=== PATIENT | male | born 1960 | race Caucasian/White ===

== ENCOUNTER 2025-01-04 05:22 | Emergency (ER) | payer OTHER, SELFPAY ==
[2025-01-04 05:23] VITALS: BP 151/115; PULSE 82; RESP 18; TEMP 36.9; O2SAT 98; BMI 26.2
[2025-01-04 05:26] VITALS: BP 154/115; PULSE 87; RESP 18; TEMP 36.9; O2SAT 97
--- NOTE | 2025-01-04 05:34 | CT_ITS ---
PROCEDURE: ABDOMEN/PELVIS W IV CONT ONLY REASON FOR EXAM: ACUTE PAIN WITH GUARDING, HISTORY PERFORATED VISCU TECHNIQUE: CT of the abdomen and pelvis with contrast with coronal and sagittal reformatted images IV CONTRAST: 95 cc Isovue 370 COMPARISON: None. FINDINGS: The lung bases are clear. The liver, adrenal glands, kidneys, pancreas and spleen appear within limits. A couple of small faint stones at the fundus of a non distended, noninflamed appearing gallbladder. No intra or extrahepatic biliary ductal dilation. Aortoiliac atherosclerotic calcifications. No abdominal aortic aneurysm. No adenopathy. Status post gastric and small bowel surgery, gastric bypass surgery. Focal mild gaseous distention of the small bowel loop directly leading away from the gastric pouch for a short segment in the left upper quadrant for example axial 22 and coronal 19. May represent a focal ileus, nonspecific. A few scattered fluid levels within nondistended small bowel in the upper abdomen. No free air. Normal caliber appendix without secondary signs. No evidence of bowel wall thickening. The bladder is mostly collapsed and there appears to be diffuse bladder wall prominence which may be due to underdistention or inflammatory/infectious process not excluded. No free fluid. Prostate appears within limits. L5-S1 spondylosis/discogenic change. Possible disc bulge at L3-4. CT/Abdomen/Pelvis W IV Cont ONLY IMPRESSION: Status post gastric and small bowel surgery, gastric bypass surgery. Focal mild gaseous distention of the small bowel loop directly leading away from the gastric pouch for a short segment in the left up per quadrant for example axial 22 and coronal 19. May represent a focal ileus, nonspecific. Cholelithiasis without CT evidence of cholecystitis The bladder is mostly collapsed and there appears to be diffuse bladder wall pr ominence which may be due to underdistention or inflammatory/infectious process not excluded. One or more dose reduction techniques were used (e.g., Automated exposure contr ol, adjustment of the mA and/or kV according to patient size, use of iterative reconstruction technique). Reading Location: [facility]
--- NOTE | 2025-01-04 05:35 | EX.ED.DYSGE1 ---
HPI <Dr. Sam Patel MD - Last Filed: 01/06/25 15:40> History of Present Illness Chief Complaint: Abd Pain Detail of Chief Complaint: Abdominal pain, distention, nausea and weight loss Informant: patient and spouse/S.O. Onset/Context/Timing Onset: Days Context: Gradual Onset Timing: Continuous and Waxes and wanes Quality: Predominantly upper abdomen fullness and discomfort Current Severity: Mild Maximum Severity: Moderate Worsened by: Attempt to eat or drink anything Relieved by: Nothing Associated Symptoms Associated Symptoms: Nausea with unintentional weight loss Narrative Narrative: Patient is 64-year-old male. He and his relocated from [place]. Prior to that they lived in [place]. He has a past surgical history of gastric sleeve, bleeding ulcer 1.5 years ago, perforated viscus who presents with recurrence of abdominal discomfort and fullness with nausea and weight loss because he cannot eat or drink anything. The last 24 hours she had half of a sandwich. The sandwich made his pain and bloating worse. He denies black or maroon-colored stool. He states he cannot vomit because he has a gastric pouch. He is a non-smoker. He denies fever, chills night sweats. He denies cardiac respiratory symptoms. He does have history of hypertension, BPH, depression and insomnia. Prior similar symptoms: Yes Recent Illness/Hospitalization: No PFSH <Dr. Sam Patel MD - Last Filed: 01/06/25 15:40> [facility] Medical History (Updated 01/04/25 @ 07:[address] Blaine Kaye, DO) Abdominal hernia Hernia Stomach ulcer Medical History no medical history no medical history (Documented HPI narrative) Home Medications ?Medication ?Instructions ?Recorded ?Last Taken ?Type amlodipine 10 mg tablet 10 mg PO DAILY 01/04/25 Unknown History carvedilol 25 mg tablet 50 mg PO BID 01/04/25 Unknown History lisdexamfetamine 60 mg capsule 60 mg PO DAILY 01/04/25 Unknown History lisinopril 40 mg tablet 40 mg PO DAILY 01/04/25 Unknown History ondansetron 4 mg disintegrating 4 mg PO Q8H PRN PRN Nausea #10 tabs 01/04/25 Unknown Rx tablet tamsulosin 0.4 mg capsule (Flomax) 0.4 mg PO DAILY 01/04/25 Unknown History trazodone 300 mg tablet 450 mg PO QHS 01/04/25 Unknown History vortioxetine 20 mg tablet 20 mg PO DAILY 01/04/25 Unknown History (Trintellix) Allergy/AdvReac Type Severity Reaction Status Date / Time No Known Allergies Allergy Verified 01/04/25 05:27 Surgical History (Updated 01/04/25 @ 05:37 by Brittanie Flower) Hx of gastric bypass Surgical History no surgical history no surgical history (Documented HPI narrative) Social History (Updated 01/04/25 @ 05:[address] Sam Patel MD) household members: spouse Smoking Status: Never smoker ROS <Dr. Sam Patel MD - Last Filed: 01/06/25 15:40> ROS ED Constitutional Constitutional ED: Denies chills, fever(s) or subjective Eyes Eyes: Denies blurry vision or change in vision ENT ENT ED: Denies ear pain or rhinorrhea Cardiovascular Cardiovascular: Denies chest pain or palpitations Respiratory/Chest Respiratory/Chest: Denies cough, dyspnea or dyspnea on exertion Gastrointestinal Gastrointestinal: Reports abdominal pain and nausea; Denies constipation, diarrhea, melena or vomiting Genitourinary Genitourinary ED: Denies dysuria, hematuria or urinary frequency Musculoskeletal Musculoskeletal: Denies arthralgias, back pain or neck pain Integumentary Denies rash Hematologic/Lymphatic Hematologic/Lymphatic: Reports systems reviewed and no addt'l complaints, except as documented EXAM <Dr. aSm Patel MD - Last Filed: 01/06/25 15:40> Physical Exam Const Vital Signs: 01/04/25 05:23 01/04/25 05:26 01/04/25 06:26 Temperature 98.5 F 98.5 F 98.1 F Temperature Source Oral Oral Oral Pulse Rate 82 87 74 Respiratory Rate 18 18 20 H Blood Pressure 151/115 H 154/115 H 144/76 H Blood Pressure Mean 127 128 98 Pulse Ox 98 97 96 Oxygen Delivery Method Room Air Room Air Non-Rebreather @ 15L/min 01/04/25 06:51 Temperature 98.1 F Temperature Source Oral Pulse Rate 77 Respiratory Rate 21 H Blood Pressure 144/94 H Blood Pressure Mean 110 Pulse Ox 98 Oxygen Delivery Method Room Air Positive well nourished and well developed Constitutional Narrative: Patient appears uncomfortable. Blood pressure is elevated. General Appearance ED: well developed; Negative for pallor HEENT HEENT Narrative: Head is atraumatic normocephalic. Ears normal. Nares patent. Eyes PERRL and EOMs intact bilaterally General Eye ED: Negative for pale conjunctiva or scleral icterus Neck no lymphadenopathy, supple and no JVD Chest Wall inspection of chest normal and palpation of chest normal Resp normal respiratory effort and clear to auscultation bilaterally Cardio regular rate, regular rhythm, S1 normal heart sound, S2 normal heart sound and no murmurs GI no masses; Negative for normal to inspection, nondistended, normoactive bowel sounds, non-tender, non-distended or hepatosplenomegaly Inspection: abdominal distention Auscultation: hypoactive bowel sounds Palpation: tender epigastric, LLQ and LUQ and guarding LLQ and LUQ; Negative for soft Back/Spine no CVA tenderness Extremity normal to inspection General Extremety ED: Negative for edema or tenderness General Extremity: Negative for edema Neuro oriented x3 and CN's II-XII intact bilaterally Sensorium / Orientation: alert Psych mental status grossly normal Skin no rashes or lesions noted, no wounds and No skin turgor normal General Skin Exam: Negative for jaundice or pallor <Dr. Blaine Kaye DO - Last Filed: 01/04/25 07:47> Physical Exam Const Vital Signs: 01/04/25 05:23 01/04/25 05:26 01/04/25 06:26 Temperature 98.5 F 98.5 F 98.1 F Temperature Source Oral Oral Oral Pulse Rate 82 87 74 Respiratory Rate 18 18 20 H Blood Pressure 151/115 H 154/115 H 144/76 H Blood Pressure Mean 127 128 98 Pulse Ox 98 97 96 Oxygen Delivery Method Room Air Room Air Non-Rebreather @ 15L/min 01/04/25 06:51 Temperature 98.1 F Temperature Source Oral Pulse Rate 77 Respiratory Rate 21 H Blood Pressure 144/94 H Blood Pressure Mean 110 Pulse Ox 98 Oxygen Delivery Method Room Air MDM <Dr. Sam Patel MD - Last Filed: 01/06/25 15:40> [facility] MDM Narrative Medical decision making narrative: Patient with significant past surgical history and complications. In light of the fact that he has a nonsoft abdomen with guarding will obtain appropriate blood work to assess renal function, electrolytes white count and CT of the abdomen pelvis with IV contrast. 1 L of normal saline was ordered. He was given 4 mg of Zofran for his nausea and 0.5 mg of Dilaudid for his pain. History & Record Review Additional record(s) reviewed:: No prior records Lab Data Attestation: I reviewed the patient's lab results. Lab results narrative: CBC is unremarkable. Comprehensive metabolic panel is unremarkable. Glucose is slightly elevated 149 with a normal CO2 anion gap. Lactate is normal at 1.1. Lipase is normal. Labs: Laboratory Results - last 24 hr 01/04/25 01/04/25 05:35 05:45 WBC 4.4 RBC 4.81 Hgb 14.8 Hct 41.2 MCV 85.7 MCH 30.8 MCHC 35.9 RDW Std Deviation 40.1 RDW Coeff of Anabella 12.8 Plt Count 165 MPV 10.3 Immature Gran % (Auto) 0.500 Neut % (Auto) 75.2 H Lymph % (Auto) 10.9 L [place] % (Auto) 10.4 H Eos % (Auto) 2.3 Baso % (Auto) 0.7 Absolute Neuts (auto) 3.3 Absolute Lymphs (auto) 0.48 L Nucleated RBC % 0 Sodium 139 Potassium 3.4 Chloride 101 Carbon Dioxide 23.9 Anion Gap 14 BUN 10 Creatinine 0.84 Estim Creat Clear Calc 77.28 Est GFR (MDRD) Non-Af 97 BUN/Creatinine Ratio 12.1 Glucose 149 H Lactic Acid 1.1 Calcium 9.1 Total Bilirubin 0.61 AST 19 ALT 19 Alkaline Phosphatase 85 Total Protein 7.3 Albumin 4.4 Globulin 2.9 Albumin/Globulin Ratio 1.5 Lipase 43 Radiography Diagnostic Testing: Clinical Impression(s) from Imaging Studies Abdomen/Pelvis CT 01/04/25 05:34 IMPRESSION: Status post gastric and small bowel surgery, gastric bypass surgery. Focal mild gaseous distention of the small bowel loop directly leading away from the gastric pouch for a short segment in the left upper quadrant for example axial 22 and coronal 19. May represent a focal ileus, nonspecific. Cholelithiasis without CT evidence of cholecystitis The bladder is mostly collapsed and there appears to be diffuse bladder wall prominence which may be due to underdistention or inflammatory/infectious process not excluded. One or more dose reduction techniques were used (e.g., Automated exposure control, adjustment of the mA and/or kV according to patient size, use of iterative reconstruction technique). Reading Location: [facility] CT of the abdomen was reviewed by me. The liver appears normal. There are gallstones noted .The right and left kidney appears normal. There is a gastric pouch in the left upper quadrant. I do not appreciate any inflammation of the pancreas. There is a significant mount of bowel gas pattern. His anatomy is distorted due to the multiple surgeries he has. Awaiting formal read by radiologist. <Dr. Blaine Kaye, DO - Last Filed: 01/04/25 07:47> [facility] Lab Data Labs: Laboratory Results - last 24 hr 01/04/25 01/04/25 05:35 05:45 WBC 4.4 RBC 4.81 Hgb 14.8 Hct 41.2 MCV 85.7 MCH 30.8 MCHC 35.9 RDW Std Deviation 40.1 RDW Coeff of Anabella 12.8 Plt Count 165 MPV 10.3 Immature Gran % (Auto) 0.500 Neut % (Auto) 75.2 H Lymph % (Auto) 10.9 L [place] % (Auto) 10.4 H Eos % (Auto) 2.3 Baso % (Auto) 0.7 Absolute Neuts (auto) 3.3 Absolute Lymphs (auto) 0.48 L Nucleated RBC % 0 Sodium 139 Potassium 3.4 Chloride 101 Carbon Dioxide 23.9 Anion Gap 14 BUN 10 Creatinine 0.84 Estim Creat Clear Calc 77.28 Est GFR (MDRD) Non-Af 97 BUN/Creatinine Ratio 12.1 Glucose 149 H Lactic Acid 1.1 Calcium 9.1 Total Bilirubin 0.61 AST 19 ALT 19 Alkaline Phosphatase 85 Total Protein 7.3 Albumin 4.4 Globulin 2.9 Albumin/Globulin Ratio 1.5 Lipase 43 Radiography Diagnostic Testing: Clinical Impression(s) from Imaging Studies Abdomen/Pelvis CT 01/04/25 05:34 IMPRESSION: Status post gastric and small bowel surgery, gastric bypass surgery. Focal mild gaseous distention of the small bowel loop directly leading away from the gastric pouch for a short segment in the left upper quadrant for example axial 22 and coronal 19. May represent a focal ileus, nonspecific. Cholelithiasis without CT evidence of cholecystitis The bladder is mostly collapsed and there appears to be diffuse bladder wall prominence which may be due to underdistention or inflammatory/infectious process not excluded. One or more dose reduction techniques were used (e.g., Automated exposure control, adjustment of the mA and/or kV according to patient size, use of iterative reconstruction technique). Reading Location: [facility] Treatment and Re-Evaluation :: Care of the patient was turned over to me pending CT results. CT scan of the abdomen and pelvis was reviewed. There is mild gaseous distention of a small bowel loop leading away from the gastric pouch for a short segment. This is a focal ileus. There is no evidence of bowel obstruction or perforation. This was interpreted by the radiologist and was also independently reviewed by myself. On reevaluation, patient's abdomen was soft. There is still some voluntary guarding however, when I was able to distract him, his abdomen was soft. Patient states his pain has improved. Patient was given a referral for primary care, gastroenterology, and general surgery. Patient was given a prescription for Zofran. Patient was instructed to start with a liquid diet and advance as tolerated. Patient was instructed to return if worse in any way. Patient understood and was agreeable with the plan. All questions were answered. Discharge Plan Triage Chief Complaint: Abd Pain ED Provider: Sam Patel Dx/Rx/DC Orders Clinical Impression: Ileus, Abdominal pain Instructions: ED Abdominal Pain Unkn Cause Male... Prescriptions: New ondansetron 4 mg tablet,disintegrating 4 mg PO Q8H PRN PRN (Reason: Nausea) Qty: 10 0RF No Action lisinopril 40 mg tablet 40 mg PO DAILY amlodipine 10 mg tablet 10 mg PO DAILY carvedilol 25 mg tablet 50 mg PO BID Rx Instructions: must administer with a meal/food tamsulosin [Flomax] 0.4 mg capsule 0.4 mg PO DAILY trazodone 300 mg tablet 450 mg PO QHS lisdexamfetamine 60 mg capsule 60 mg PO DAILY Trintellix 20 mg tablet 20 mg PO DAILY Primary Care Provider: Care Physician,No Primary Referrals: Mickie Pino MD [Med Staff - Dietetics Teacher] - 3-5 Days John Vázquez DO [Med Staff - Active Staff] - 3-5 Days Anam Paez MD [Med Staff - Active Staff] - 3-5 Days Care Physician,No Primary [Primary Care Provider] - Print Language: Zimbabwean Disposition Disposition: Home, Self Care Discharge Date/Time: 01/04/25 08:03
[2025-01-04 05:47] LABS: Absolute Lymphocyte Count 0.48 X10^3/uL (0.83-4.51); Absolute Neutrophil Count 3.3 X10^3/uL (2.0-7.7); Basophil# 0.03 X10^3/uL; Basophil% 0.7 % (0-1); Eosinophils% 2.3 % (0-5); Hematocrit 41.2 % (40-54); Hemoglobin 14.8 g/dL (13.0-16.5); Lymphocyte # 0.48 X10^3/ul (0.83-4.51); Lymphocyte % 10.9 % (19-41); Mean Corp Hgb Conc 35.9 g/dL (32-36); Mean Corpuscular Hgb 30.8 pg (27.0-32.0); Mean Corpuscular Volume 85.7 fL (80-94); Mean Platelet Vol. 10.3 fl (6.2-12.0); Monocyte# 0.46 X10^3/uL; Monocyte% 10.4 % (0-10); NRBC Flagged by Analyzer 0 % (0-5); Neutrophil # 3.32 X10^3/uL (2.7-7.7); Neutrophil % 75.2 % (47-70); POSITIVE DIFFERENTIAL YES; Platelet Count 165 K/mm3 (150-450); RBC Distribution Width CV 12.8 % (11.6-14.6); RBC Distribution Width SD 40.1 fl (35.1-43.9); Red Blood Count 4.81 M/mm3 (4.6-6.2); White Blood Count 4.4 K/mm3 (4.4-11.0)
[2025-01-04] MEDS: Ondansetron 4 MG/2 ML Vial IV (05:49)
[2025-01-04] MEDS: 0.9% Normal Saline (1000mL) 1,000 ML 1000 ML IV (05:49)
[2025-01-04] MEDS: HYDROmorphone 1 MG/ML Syringe 0.5 MG IV (05:49)
[2025-01-04 06:23] LABS: ALB/GLOB Ratio 1.5 RATIO (0.9-2.4); AST(SGOT) 19 U/L (<=37); Alanine Aminotransfer ALT/SGPT 19 U/L (<=46); Albumin, Serum 4.4 g/dL (3.4-4.8); Alkaline Phosphatase 85 U/L (40-129); Anion Gap 14 (5-15); BUN 10 mg/dL (4-19); BUN/Creat Ratio 12.1 RATIO (10-20); Calcium,Total 9.1 mg/dL (7.6-11.0); Carbon Dioxide 23.9 mmol/L (21.0-32.0); Chloride 101 mmol/L (98-108); Creatinine, Serum 0.84 mg/dL (0.70-1.20); EST Glomerular Filtration Rate 97 (>60); Estimated Creatinine Clearance 77.28 ml/min (50-250); Globulin 2.9 g/dL (2.2-4.2); Glucose 149 mg/dL (70-99); Lipase 43 U/L (13-75); Potassium 3.4 mmol/L (3.3-5.1); Protein, Total 7.3 g/dL (5.9-8.4); Sodium Level 139 mmol/L (133-145); Total Bilirubin 0.61 mg/dL (0.00-1.30)
[2025-01-04 06:26] VITALS: BP 144/76; PULSE 74; RESP 20; TEMP 36.7; O2SAT 96
[2025-01-04 06:48] LABS: Lactic Acid 1.1 mmol/L (0.0-2.0)
[2025-01-04 06:51] VITALS: BP 144/94; PULSE 77; RESP 21; TEMP 36.7; O2SAT 98
[2025-01-04 07:51] VITALS: BP 161/94; PULSE 76; RESP 18; TEMP 37.1; O2SAT 98
== END 2025-01-04 08:03 | disposition home or self-care (01) ==
PROVIDERS: Emergency Provider Emergency Medicine; Visit Provider Emergency Medicine
DX: K56.7 Ileus, unspecified (principal); I10 Essential (primary) hypertension; Z79.899 Other long term (current) drug therapy
CPT/HCPCS: 74177; 80053; 83605; 83690; 85025; 96361; 96374; 96375; 96376; 99284; Q9967; A4216; J2405

== ENCOUNTER 2025-02-23 13:04 | Emergency (ER) | payer OTHER, SELFPAY ==
[2025-02-23 13:04] VITALS: BP 134/87; PULSE 83; RESP 19; TEMP 36.7; O2SAT 95; BMI 25.9
--- NOTE | 2025-02-23 13:45 | EDS_ITS ---
HPI History of Present Illness Chief Complaint: Foreign Body PFSH PFS Medical History Abdominal hernia Hernia Stomach ulcer Home Medications ?Medication ?Instructions ?Recorded ?Last Taken ?Type amlodipine 10 mg tablet 10 mg PO DAILY 01/04/25 Unkn own History carvedilol 25 mg tablet 50 mg PO BID 01/04/25 Unknow n History lisdexamfetamine 60 mg capsule 60 mg PO DAILY 01/04/25 Unknown History lisinopril 40 mg tablet 40 mg PO DAILY 01/04/25 Unkn own History ondansetron 4 mg disintegrating 4 mg PO Q8H PRN PRN Na usea #10 tabs 01/04/25 Unknown Rx tablet tamsulosin 0.4 mg capsule (Flomax) 0.4 mg PO DAILY Unknown History trazodone 300 mg tablet 450 mg PO QHS 01/04/25 Unkno wn History vortioxetine 20 mg tablet 20 mg PO DAILY 01/04/25 Unkn own History (Trintellix) cephalexin 500 mg capsule 500 mg PO TID 5 days #15 cap s 02/23/25 Unknown Rx Allergy/AdvReac Type Severity Reaction Status Date / Time No Known Allergies Allergy Verified 02/23/25 13:04 Surgical History Hx of gastric bypass Social History household members: spouse Smoking Status: Never smoker EXAM Physical Exam Const Vital Signs: 02/23/25 13:04 02/23/25 13:09 02/23/25 14:51 Temperature 98.1 F 98.1 F Temperature Source Oral Pulse Rate 83 83 Respiratory Rate 19 H 19 H Respiratory Effort Normal Respiratory Pattern Normal Blood Pressure 134/87 H 134/87 H Blood Pressure Mean 102 102 Pulse Ox 95 95 Oxygen Delivery Method Room Air MDM MDM MDM Narrative Medical decision making narrative: HISTORY OF PRESENT ILLNESS: Chief complaint: Fishing hook in left hand 65-year-old male presents with concern for fishing hook stuck in his left hand. This occurred just prior to arrival the patient was assisting in cleaning out a shed. Unknown last tetanus. REVIEW OF SYSTEMS: Pertinent positives: Left hand pain Pertinent negatives: PHYSICAL EXAM: Nursing triage notes reviewed, Vital signs reviewed Constitutional: please see mdm Extremities: No edema, fishhook noted in right hand. No surrounding erythema. Intact flexion of thumb and second digit flexion. Intact flexor digitorum superficialis tendons noted. Neuro: Intact 5/5 strength with ok sign (median), intact finger abduction (ulnar) intact wrist extension (radial n). Intact sensation in the radial, ulnar, and median nerve distributions. Skin: No rash or lesions noted MEDICAL DECISION MAKING: Chief Complaint: please see HPI History obtained from others: Consults: none [facility] Narrative: The patient was initially hemodynamically stable, afebrile and nontoxic- appearing. A fishhook was noted in the right hand interspace between the 1st and 2nd digits. The right upper extremity is neurovascularly intact. Topical let was applied and lidocaine was infused around the fishhook. A small ivett was made in the skin and fishhook was removed. 3 absorbable 6?0 Vicryl sutures were placed with close approximation. Please see procedure note. Patient tolerated procedure well. He was given prophylactic antibiotics and tetanus was updated. Procedure: Laceration repair. The procedure was performed by myself. Indication: Wound repair Risks and benefits: risks, benefits and alternatives were discussed Consent: Consent was obtained. Wound Details: right hand, length (0.5 cm), depth (1 mm), no foreign bodies after removal, no obvious tendinous involvement Anesthesia: Topical let, intradermal lidocaine Wound prep: Patient was prepped and draped in the usual sterile fashion. Tetanus: Updated today Irrigation Solution: Saline Wound Preparation: Cleansed with lidocaine The wound was explored to its base in a bloodless field. Procedure Description: Applied 3 absorbable 6-0 Vicryl sutures. Patient tolerated the procedure well with no immediate complications The patient and/or family, caregivers express understanding. The patient and/or family, caregivers agrees with the plan. Shared decision making: I will have a discussion with the patient and or visitors regarding risk/benefits of further testing or admission. They will be made aware of of the risk/benefits inherent in this decision they will be given the opportunity to voice understanding. Total critical care time today provided was at least 0 [] minutes. This excludes separately billable procedures. Critical care time (if documented) is secondary to the patient having high probability of clinically significant/life threatening deterioration in the patient's condition which required my urgent intervention. Impression: 1. Saxman in right hand Dispo: Discharge home This note was generated with [employer] dictation software. It may contain incorrect words, spelling, and punctuation that were not noted in review of the chart prior to signing. Discharge Plan Triage Chief Complaint: Foreign Body ED Provider: López Lindsay Dx/Rx/DC Orders Instructions: ED Saxman Removed Prescriptions: New cephalexin 500 mg capsule 500 mg PO TID 5 Days Qty: 15 0RF No Action lisinopril 40 mg tablet 40 mg PO DAILY amlodipine 10 mg tablet 10 mg PO DAILY carvedilol 25 mg tablet 50 mg PO BID Rx Instructions: must administer with a meal/food tamsulosin [Flomax] 0.4 mg capsule 0.4 mg PO DAILY trazodone 300 mg tablet 450 mg PO QHS lisdexamfetamine 60 mg capsule 60 mg PO DAILY Trintellix 20 mg tablet 20 mg PO DAILY ondansetron 4 mg tablet,disintegrating 4 mg PO Q8H PRN PRN (Reason: Nausea) Qty: 10 0RF Primary Care Provider: Care Physician,Juliann Primary Referrals: Robert Peralta MD [Med Staff - Active Staff] - Activity Restrictions/Additional Instructions: Thank you for trusting us with your care today! Please clean your wound with peroxide and topical antimicrobial ointment (Neosporin) daily for the next 3 days. Please take antibiotics as until course completed. After day 3 soap and water should suffice for daily wound cleansing. Please keep your wound clean dry and covered Please take Tylenol (2 pills, 650 mg), ibuprofen (2 pills, 400 mg) every 6 hours as needed for pain and fever control. Please return to the emergency department if your symptoms change or worsen. Specifically if you develop redness, increasing pain, warmth, white-yellow discharge, fevers. Sutures that were placed are absorbable. They will resorb on their own. They do not need to be removed manually. Please follow with hand surgery if needed. Print Language: Burmese Disposition Disposition: Home, Self Care Discharge Date/Time: 02/23/25 15:05
[2025-02-23] MEDS: Lidocaine 1% (20 ml mdv) 20 ML Vial 5 ML INFILT (14:12)
[2025-02-23] MEDS: Lidocaine/Epi/Tetracaine 50 ML 1 APPLIC TOPICAL (14:13)
[2025-02-23 14:51] VITALS: BP 134/87; PULSE 83; RESP 19; TEMP 36.7; O2SAT 95
[2025-02-23] MEDS: Diphth,Pertuss(Acell),Tet Vac 0.5 ML Vial IM (14:56)
[2025-02-23] MEDS: Cephalexin 250 MG Capsule 500 MG PO (14:57)
== END 2025-02-23 15:05 | disposition home or self-care (01) ==
PROVIDERS: Emergency Provider Emergency Medicine; Visit Provider Emergency Medicine
DX: S61.401A Unspecified open wound of right hand, initial encounter (principal); X58.XXXA Exposure to other specified factors, initial encounter
CPT/HCPCS: 90715; 99282

== ENCOUNTER → 2025-02-25 | Outpatient (CLI) | payer OTHER, SELFPAY ==
[2025-02-25 15:32] LABS: Absolute Lymphocyte Count 1.41 X10^3/uL (0.83-4.51); Absolute Neutrophil Count 4.5 X10^3/uL (2.0-7.7); Basophil# 0.05 X10^3/uL; Basophil% 0.7 % (0-1); Eosinophil# 0.47 X10^3/uL; Eosinophils% 6.6 % (0-5); Hematocrit 35.6 % (40-54); Hemoglobin 12.5 g/dL (13.0-16.5); Lymphocyte # 1.41 X10^3/ul (0.83-4.51); Lymphocyte % 19.9 % (19-41); Mean Corp Hgb Conc 35.1 g/dL (32-36); Mean Corpuscular Hgb 30.3 pg (27.0-32.0); Mean Corpuscular Volume 86.2 fL (80-94); Monocyte# 0.62 X10^3/uL; Monocyte% 8.7 % (0-10); NRBC Flagged by Analyzer 0 % (0-5); Neutrophil # 4.52 X10^3/uL (2.7-7.7); Neutrophil % 63.7 % (47-70); Platelet Count 253 K/mm3 (150-450); RBC Distribution Width CV 13.7 % (11.6-14.6); RBC Distribution Width SD 42.7 fl (35.1-43.9); Red Blood Count 4.13 M/mm3 (4.6-6.2); White Blood Count 7.1 K/mm3 (4.4-11.0)
[2025-02-25 18:04] LABS: ALB/GLOB Ratio 1.2 RATIO (0.9-2.4); AST(SGOT) 15 U/L (<=37); Alanine Aminotransfer ALT/SGPT 11 U/L (<=46); Albumin, Serum 3.8 g/dL (3.4-4.8); Alkaline Phosphatase 76 U/L (40-129); Anion Gap 10 (5-15); BUN 15 mg/dL (4-19); BUN/Creat Ratio 20.2 RATIO (10-20); Calcium,Total 9.1 mg/dL (7.6-11.0); Carbon Dioxide 24.2 mmol/L (21.0-32.0); Chloride 102 mmol/L (98-108); Creatinine, Serum 0.74 mg/dL (0.70-1.20); EST Glomerular Filtration Rate 100 (>60); Ferritin 94 ng/mL (37-417); Globulin 3.1 g/dL (2.2-4.2); Glucose 121 mg/dL (70-99); Iron 46 ug/dL (65-175); Iron Binding Capacity,Total 269 ug/dL (250-450); Iron Binding Capacity,Unsat 223 ug/dL (228-428); Potassium 3.9 mmol/L (3.3-5.1); Protein, Total 6.9 g/dL (5.9-8.4); Sodium Level 136 mmol/L (133-145); Total Bilirubin 0.26 mg/dL (0.00-1.30); Vitamin B12 484 pg/mL (180-914); Vitamin D,25 Hydroxy 16.2 ng/mL (30-100)
== END | disposition home or self-care (01) ==
LOC: BIMLAB 14:10
PROVIDERS: Visit Provider Internal Medicine
DX: R19.5 Other fecal abnormalities (principal); R11.0 Nausea; Z87.11 Personal history of peptic ulcer disease; Z98.84 Bariatric surgery status
CPT/HCPCS: 36415; 80053; 82306; 82607; 82728; 83540; 83550; 85025

== ENCOUNTER → 2025-02-26 | Outpatient (CLI) | payer OTHER, SELFPAY ==
[2025-02-27 18:08] LABS: H. PYLORI STOOL AG Negative (Negative)
== END | disposition home or self-care (01) ==
LOC: LAB.FUTURE 06:30 → LAB 06:34
PROVIDERS: Visit Provider Internal Medicine
DX: R19.5 Other fecal abnormalities (principal)
CPT/HCPCS: 82274; 87338

== ENCOUNTER → 2025-07-16 | Outpatient (CLI) | payer BC, SELFPAY ==
[2025-07-16 11:00] LABS: Hematocrit 37.8 % (40-54); Hemoglobin 13.2 g/dL (13.0-16.5); Immature Granulocytes Count 0.040 X10^3/uL (0.0-0.0); Mean Corp Hgb Conc 34.9 g/dL (32-36); Mean Corpuscular Volume 86.1 fL (80-94); Mean Platelet Vol. 9.7 fl (6.2-12.0); NRBC Flagged by Analyzer 0 % (0-5); Platelet Count 234 K/mm3 (150-450); RBC Distribution Width CV 14.4 % (11.6-14.6); RBC Distribution Width SD 45.6 fl (35.1-43.9); Red Blood Count 4.39 M/mm3 (4.6-6.2); White Blood Count 11.0 K/mm3 (4.4-11.0)
[2025-07-16 11:59] LABS: AST(SGOT) 18 U/L (<=37); Alanine Aminotransfer ALT/SGPT 15 U/L (<=46); Albumin, Serum 3.8 g/dL (3.4-4.8); Alkaline Phosphatase 83 U/L (40-129); Anion Gap 10 (5-15); BUN 14 mg/dL (4-19); BUN/Creat Ratio 17.6 RATIO (10-20); Calcium,Total 8.6 mg/dL (7.6-11.0); Carbon Dioxide 26.4 mmol/L (21.0-32.0); Chloride 103 mmol/L (98-108); Cholesterol 158 mg/dL (<=200); Globulin 2.8 g/dL (2.2-4.2); Glucose 131 mg/dL (70-99); Low Density Lipoprotein Calc. 100 mg/dL; Potassium 3.4 mmol/L (3.3-5.1); Triglycerides 54 mg/dL; Very Low Density Lipoprotein 11 mg/dL (5-40); cholesterol:hdl ratio screen 3.33
== END | disposition home or self-care (01) ==
LOC: LAB 10:12
PROVIDERS: PCP Internal Medicine; Referring Provider Physician Assistant; Visit Provider Physician Assistant
DX: I10 Essential (primary) hypertension (principal); R73.09 Other abnormal glucose; D64.9 Anemia, unspecified
CPT/HCPCS: 36415; 80053; 80061; 83036; 85025